=== PATIENT | female | born 1950 | race Caucasian/White ===

== ENCOUNTER → 2020-05-04 | Outpatient (CLI) | payer OTHER | END | disposition home or self-care (01) | LOC: COVID19 11:07 | PROVIDERS: ATTEND Internal Medicine | DX: U07.1 COVID-19 (principal) ==

== ENCOUNTER 2023-01-03 14:57 | Emergency (ER) | payer OTHER ==
[~2023-01-03] VITALS: Ht 157.4 cm; Wt 79.4 kg
[2023-01-03] MEDS ORDERED: TRAMADOL HCL50 MG PO (18:39)
== END 2023-01-03 18:37 | disposition home or self-care (01) ==
LOC: ED 14:57
DX: S82.841A Displaced bimalleolar fracture of right lower leg, initial encounter for closed fracture (principal); W10.9XXA Fall (on) (from) unspecified stairs and steps, initial encounter; Y93.89 Activity, other specified; Y92.009 Unspecified place in unspecified non-institutional (private) residence as the place of occurrence of the external cause; Y99.8 Other external cause status